=== PATIENT | male | born 1965 | race Caucasian/White ===

== ENCOUNTER 2020-03-28 19:02 | Emergency (ER) | payer MEDICARE, OTHER ==
[~2020-03-28] VITALS: Ht 160 cm; Wt 74.0 kg
[~2020-03-28 19:02] MED LIST: NOVOLOG
[2020-03-28] MEDS ORDERED: CARV12 PO (19:21)
[2020-03-28] MEDS ORDERED: AMLO5TAB9 PO (19:21)
[2020-03-28] MEDS ORDERED: HYDR10TA31 PO (19:21)
[2020-03-28] MEDS ORDERED: INSU100I3 SQ (19:31)
[2020-03-28] MEDS ORDERED: INSU300I SQ (19:31)
[2020-03-28] MEDS ORDERED: HYDR25TA84 PO (19:31)
[2020-03-28] MEDS ORDERED: AMLO10TA7 PO (19:31)
[2020-03-28] MEDS ORDERED: SEVE800T17 PO (19:31)
[2020-03-28] MEDS ORDERED: HYDR-4061 PO (19:31)
[2020-03-28 19:57] LABS: CALCIUM, TOTAL 8.4 mg/dL (8.8-10.5); CREATININE 8.1 mg/dL (0.60-1.30); POTASSIUM 5.5 mmol/L (3.5-5.1)
[2020-03-28 21:39] VITALS: BP 176/89
== END 2020-03-28 22:32 | disposition home or self-care (01) ==
LOC: EMS 19:03
DX: R06.02 Shortness of breath (principal)

== ENCOUNTER 2022-06-23 08:30 | Inpatient (IN) | payer MEDICARE, OTHER ==
[~2022-06-23] VITALS: Ht 165.1 cm; Wt 71.2 kg
[~2022-06-23 08:30] MED LIST changes: +AMLO-258 PO; +CARV12 PO; +HYDR-4061 PO; +HYDR25TA84 PO; +INSU100I3 SQ; +INSU300I SQ; -NOVOLOG; +SEVE800T17 PO
[2022-06-23] MEDS ORDERED: INSU100V42 SQ (08:54)
[2022-06-23] MEDS ORDERED: BENA20TA83 PO (08:54)
[2022-06-23] MEDS ORDERED: HYDR50TA36 PO (08:54)
[2022-06-23] MEDS ORDERED: CARV25 PO (08:54)
[2022-06-23] MEDS ORDERED: HYDR-4723 PO (08:54)
[2022-06-23] MEDS ORDERED: BUME1TAB34 PO (08:54)
[2022-06-23 10:06] LABS: BASOPHILS % (AUTO) 0.4 % (0.0-2.0); EOSINOPHILS % (AUTO) 0.2 % (1.0-6.0); HEMATOCRIT 25.5 % (41-53); HEMOGLOBIN 8.2 g/dL (13.5-17.5); LYMPHOCYTES # (AUTO) 0.5 K/uL (1.0-4.8); LYMPHOCYTES % (AUTO) 3.6 % (22.0-44.0); MEAN CORPUSCULAR HEMOGLOBIN 31.1 pg (26.0-34.0); MEAN CORPUSCULAR HGB CONC 32.4 G/dL (31.0-37.0); MEAN CORPUSCULAR VOLUME 96 fL (80-100); MONOCYTES # (AUTO) 0.8 K/uL (0.1-1.0); MONOCYTES % (AUTO) 6.4 % (2.0-9.0); NEUTROPHILS # (AUTO) 11.7 K/uL (1.8-7.7); PLATELET COUNT (AUTO) 131 K/uL (150-450); RED BLOOD CELL COUNT(AUTO) 2.65 MIL/uL (4.50-5.90); RED CELL DISTRIBUTION WIDTH 18.1 % (11.5-14.5)
[2022-06-23 10:08] LABS: NEUTROPHILS % (AUTO) 89.4 % (40.0-70.0)
[2022-06-23 10:17] LABS: CALCIUM, TOTAL 8.2 mg/dL (8.8-10.5); CREATININE 2.93 mg/dL (0.60-1.30); POTASSIUM 3.7 mmol/L (3.5-5.1)
[2022-06-23 10:23] LABS: ALBUMIN 2.3 g/dL (3.4-5.0); BILIRUBIN,TOTAL 0.3 mg/dL (0.1-1.0)
[2022-06-23 10:26] LABS: LACTIC ACID 1.3 mmol/L (0.4-2.0)
[2022-06-23 11:49] LABS: COVID AG,FIA SOURCE NASOPHARYNGEAL
[2022-06-23] MEDS ORDERED: ONDANSETRON HCL 4 MG/2 ML VIAL IVP PRN (12:00)
[2022-06-23] MEDS ORDERED: BISACODYL 10 MG RECTAL RECTAL SUPPOSITORY PR PRN (12:00)
[2022-06-23] MEDS ORDERED: MAGNESIUM HYDROXIDE SUSPENSION 30 ML UDCUP PO PRN (12:00)
[2022-06-23] MEDS ORDERED: DEXTROSE 5%-0.45% SODIUM CHL 1,000 ML IV ONE (12:00)
[2022-06-23] MEDS ORDERED: DEXTROSE 50%-WATER 25 GM/50 ML SYRINGE IVP PRN (12:00)
[2022-06-23 13:00] VITALS: BP 168/79
[2022-06-23] MEDS: HEPARIN SODIUM,PORCINE 5,000 UNITS/ML VIAL SQ SCH (16:00)
[2022-06-23] MEDS: HydrALAZINE HCL 50 MG TABLET PO SCH ×2 (16:09→20:22)
[2022-06-23] MEDS: ACETAMINOPHEN 325 MG TABLET PO PRN (16:11)
[2022-06-23 16:19] VITALS: BP 161/62
[2022-06-23 20:12] LABS: GLUCOMETER DEV NAME(LOC) 5S.2B; GLUCOSE,POINT OF CARE 150 MG/DL (70-110)
[2022-06-23 20:15] VITALS: BP 152/68
[2022-06-23] MEDS: DOCUSATE SODIUM 100 MG CAPSULE PO SCH ×2 (20:22→20:29)
[2022-06-23] MEDS: BENAZEPRIL HCL 20 MG TABLET PO SCH (20:22)
[2022-06-24] MEDS: HEPARIN SODIUM,PORCINE 5,000 UNITS/ML VIAL SQ SCH ×3 (00:20→16:19)
[2022-06-24 00:57] VITALS: BP 155/65
[2022-06-24 05:26] LABS: GLUCOMETER DEV NAME(LOC) 5N.1C; GLUCOSE,POINT OF CARE 247 MG/DL (70-110)
[2022-06-24 05:53] VITALS: BP 163/75
[2022-06-24] MEDS: ACETAMINOPHEN 325 MG TABLET PO PRN ×2 (06:56→20:08)
[2022-06-24 07:02] LABS: BASOPHILS % (AUTO) 0.7 % (0.0-2.0); EOSINOPHILS % (AUTO) 0.7 % (1.0-6.0); HEMATOCRIT 23.7 % (41-53); HEMOGLOBIN 7.9 g/dL (13.5-17.5); LYMPHOCYTES # (AUTO) 0.5 K/uL (1.0-4.8); MEAN CORPUSCULAR HEMOGLOBIN 31.7 pg (26.0-34.0); MEAN CORPUSCULAR HGB CONC 33.2 G/dL (31.0-37.0); MEAN CORPUSCULAR VOLUME 96 fL (80-100); MONOCYTES # (AUTO) 0.8 K/uL (0.1-1.0); MONOCYTES % (AUTO) 12.6 % (2.0-9.0); NEUTROPHILS # (AUTO) 5.2 K/uL (1.8-7.7); PLATELET COUNT (AUTO) 131 K/uL (150-450); RED BLOOD CELL COUNT(AUTO) 2.48 MIL/uL (4.50-5.90); RED CELL DISTRIBUTION WIDTH 18.3 % (11.5-14.5)
[2022-06-24 07:27] LABS: ALBUMIN 2.3 g/dL (3.4-5.0); BILIRUBIN,TOTAL 0.3 mg/dL (0.1-1.0); CALCIUM, TOTAL 7.9 mg/dL (8.8-10.5); CREATININE 3.71 mg/dL (0.60-1.30); POTASSIUM 3.9 mmol/L (3.5-5.1); TOTAL PROTEIN, SERUM 7.7 g/dL (6.4-8.2)
[2022-06-24 08:00] VITALS: BP 148/74
[2022-06-24 08:01] LABS: GLUCOMETER DEV NAME(LOC) 5S.2B; GLUCOSE,POINT OF CARE 237 MG/DL (70-110)
[2022-06-24] MEDS: PANTOPRAZOLE SODIUM 40 MG DR TABLET PO SCH (08:54)
[2022-06-24] MEDS: AmLODIPine BESYLATE 10 MG TABLET PO SCH (08:55)
[2022-06-24] MEDS: BENAZEPRIL HCL 20 MG TABLET PO SCH ×2 (08:55→20:07)
[2022-06-24] MEDS: PARICALCITOL 1 MCG CAPSULE PO SCH (08:57)
[2022-06-24] MEDS: HydrALAZINE HCL 50 MG TABLET PO SCH ×3 (08:59→20:07)
[2022-06-24 11:36] VITALS: BP 155/82
[2022-06-24 11:36] LABS: GLUCOMETER DEV NAME(LOC) 5N.1C; GLUCOSE,POINT OF CARE 200 MG/DL (70-110)
[2022-06-24 16:14] VITALS: BP 153/82
[2022-06-24 20:06] LABS: GLUCOMETER DEV NAME(LOC) 5N.1C; GLUCOSE,POINT OF CARE 262 MG/DL (70-110)
[2022-06-24] MEDS: ZOLPIDEM TARTRATE 5 MG TABLET PO PRN (20:07)
[2022-06-24] MEDS: DOCUSATE SODIUM 100 MG CAPSULE PO SCH (20:07)
[2022-06-24 20:31] LABS: GLUCOMETER DEV NAME(LOC) 5S.2B; GLUCOSE,POINT OF CARE 253 MG/DL (70-110)
[2022-06-25] MEDS: ACETAMINOPHEN 325 MG TABLET PO PRN ×4 (00:08→23:20)
[2022-06-25 01:30] VITALS: BP 145/79
[2022-06-25 06:56] LABS: GLUCOMETER DEV NAME(LOC) 5S.2B; GLUCOSE,POINT OF CARE 288 MG/DL (70-110)
[2022-06-25 07:27] VITALS: BP 155/80
[2022-06-25] MEDS: HEPARIN SODIUM,PORCINE 5,000 UNITS/ML VIAL SQ SCH ×4 (08:07→23:19)
[2022-06-25] MEDS: DOCUSATE SODIUM 100 MG CAPSULE PO SCH ×2 (08:08→20:07)
[2022-06-25] MEDS: HydrALAZINE HCL 50 MG TABLET PO SCH ×3 (08:08→20:07)
[2022-06-25] MEDS: PARICALCITOL 1 MCG CAPSULE PO SCH (08:09)
[2022-06-25] MEDS: PANTOPRAZOLE SODIUM 40 MG DR TABLET PO SCH (08:09)
[2022-06-25] MEDS: AmLODIPine BESYLATE 10 MG TABLET PO SCH ×2 (08:09→13:34)
[2022-06-25] MEDS: BENAZEPRIL HCL 20 MG TABLET PO SCH ×2 (08:09→20:07)
[2022-06-25 11:15] VITALS: BP 179/87
[2022-06-25 15:40] VITALS: BP 152/98
[2022-06-25 19:35] VITALS: BP 151/80
[2022-06-25 20:01] LABS: GLUCOMETER DEV NAME(LOC) 5N.1C; GLUCOSE,POINT OF CARE 356 MG/DL (70-110)
[2022-06-25 20:01] LABS: GLUCOMETER DEV NAME(LOC) 5N.1C; GLUCOSE,POINT OF CARE 317 MG/DL (70-110)
[2022-06-25 20:01] LABS: GLUCOMETER DEV NAME(LOC) 5N.1C; GLUCOSE,POINT OF CARE 314 MG/DL (70-110)
[2022-06-26] VITALS (14 sets, daily range): BP systolic 117–182; BP diastolic 79–168
[2022-06-26] MEDS: ACETAMINOPHEN 325 MG TABLET PO PRN ×5 (06:17→23:49)
[2022-06-26] MEDS: PANTOPRAZOLE SODIUM 40 MG DR TABLET PO SCH (08:43)
[2022-06-26] MEDS: BENAZEPRIL HCL 20 MG TABLET PO SCH ×2 (08:44→20:00)
[2022-06-26] MEDS: PARICALCITOL 1 MCG CAPSULE PO SCH (08:45)
[2022-06-26] MEDS: AmLODIPine BESYLATE 10 MG TABLET PO SCH (08:45)
[2022-06-26] MEDS: HEPARIN SODIUM,PORCINE 5,000 UNITS/ML VIAL SQ SCH ×3 (08:46→23:46)
[2022-06-26] MEDS: HydrALAZINE HCL 50 MG TABLET PO SCH ×3 (08:46→20:00)
[2022-06-26] MEDS: DOCUSATE SODIUM 100 MG CAPSULE PO SCH ×2 (08:47→20:00)
[2022-06-26] MEDS ORDERED: EPOETIN ALFA 10,000 UNITS/ML VIAL SQ SCH (09:00)
[2022-06-26] MEDS ORDERED: SODIUM CHLORIDE 0.9% 2,000 ML ONE (09:39)
[2022-06-26] MEDS ORDERED: GABA-1181 PO (12:47)
[2022-06-26] MEDS ORDERED: HYDR-4065 PO (12:47)
[2022-06-26] MEDS ORDERED: INSU100I21 SQ (12:47)
[2022-06-26] MEDS ORDERED: PARI1CAP PO (14:01)
[2022-06-26] MEDS ORDERED: INSU100V12 SQ (14:05)
[2022-06-26] MEDS ORDERED: ZOLPIDEM TARTRATE 5 MG TABLET PO PRN (20:00)
[2022-06-26] MEDS: ZOLPIDEM TARTRATE 5 MG TABLET PO PRN (23:46)
[2022-06-27 00:11] VITALS: BP 158/90
[2022-06-27 04:54] VITALS: BP 160/80
[2022-06-27] MEDS: ACETAMINOPHEN 325 MG TABLET PO PRN ×2 (05:37→15:31)
[2022-06-27 07:50] VITALS: BP 158/72
[2022-06-27] MEDS: PARICALCITOL 1 MCG CAPSULE PO SCH (08:17)
[2022-06-27] MEDS: BENAZEPRIL HCL 20 MG TABLET PO SCH (08:17)
[2022-06-27] MEDS: AmLODIPine BESYLATE 10 MG TABLET PO SCH (08:17)
[2022-06-27] MEDS: PANTOPRAZOLE SODIUM 40 MG DR TABLET PO SCH (08:18)
[2022-06-27] MEDS: HydrALAZINE HCL 50 MG TABLET PO SCH ×2 (08:18→15:30)
[2022-06-27] MEDS: HEPARIN SODIUM,PORCINE 5,000 UNITS/ML VIAL SQ SCH ×2 (08:18→15:30)
[2022-06-27] MEDS: DOCUSATE SODIUM 100 MG CAPSULE PO SCH (08:18)
[2022-06-27 08:48] LABS: GLUCOMETER DEV NAME(LOC) 5N.1C; GLUCOSE,POINT OF CARE 304 MG/DL (70-110)
[2022-06-27 09:02] LABS: GLUCOMETER DEV NAME(LOC) 5S.2B; GLUCOSE,POINT OF CARE 254 MG/DL (70-110)
[2022-06-27 11:00] VITALS: BP 169/109
[2022-06-27 15:23] VITALS: BP 170/81
[2022-06-27 18:31] LABS: GLUCOMETER DEV NAME(LOC) 5N.1C; GLUCOSE,POINT OF CARE 320 MG/DL (70-110)
== END 2022-06-27 17:30 | disposition home or self-care (01) | DRG 637 ==
LOC: EMS 08:35 → 5S 12:03
PROVIDERS: ADMIT Internal Medicine; ATTEND Internal Medicine
DX: E11.649 Type 2 diabetes mellitus with hypoglycemia without coma (principal); G93.41 Metabolic encephalopathy; E87.1 Hypo-osmolality and hyponatremia; R65.10 Systemic inflammatory response syndrome (SIRS) of non-infectious origin without acute organ dysfunction; E46 Unspecified protein-calorie malnutrition; R64 Cachexia; I13.11 Hypertensive heart and chronic kidney disease without heart failure, with stage 5 chronic kidney disease, or end stage renal disease; N18.6 End stage renal disease; N25.81 Secondary hyperparathyroidism of renal origin; E11.22 Type 2 diabetes mellitus with diabetic chronic kidney disease; D63.1 Anemia in chronic kidney disease; E83.39 Other disorders of phosphorus metabolism; E78.5 Hyperlipidemia, unspecified; E83.51 Hypocalcemia; E88.09 Other disorders of plasma-protein metabolism, not elsewhere classified; G89.29 Other chronic pain; R62.7 Adult failure to thrive; Z20.822 Contact with and (suspected) exposure to COVID-19; K74.60 Unspecified cirrhosis of liver; I27.20 Pulmonary hypertension, unspecified; I07.1 Rheumatic tricuspid insufficiency; Z79.899 Other long term (current) drug therapy; Z99.2 Dependence on renal dialysis; Z79.4 Long term (current) use of insulin; Z74.01 Bed confinement status; Z51.5 Encounter for palliative care; Z68.26 Body mass index [BMI] 26.0-26.9, adult; Z88.5 Allergy status to narcotic agent
CPT/HCPCS: 70450; 71045; 80053; 82962; 83036; 83605; 85025; 87081; 87340; 93005; 99285; G0378; J0885; J1644; J7030; 36415-L1; 36415-TC